=== PATIENT | male | born 2005 | race Hispanic/Latino ===

== ENCOUNTER → 2024-12-18 | Emergency (ER) | payer SELFPAY ==
--- NOTE | 2024-12-18 17:55 | NUR ---
PT LEFT FACILITY BEFORE TRIAGING. PT BECAME UNCOOPERATIVE AND AGITATED WHEN ASKED ABOUT THE REASON FOR HIS VISIT.
== END ==
LOC: EDH 17:53
DX: Z53.21 Procedure and treatment not carried out due to patient leaving prior to being seen by health care provider (principal)